=== PATIENT | male | born 1965 | race Caucasian/White ===

== ENCOUNTER 2018-10-10 12:37 | Emergency (ER) | payer BC ==
[~2018-10-10] VITALS: Wt 91.5 kg
[2018-10-10 12:43] VITALS: BP 127/72; PULSE 83; RESP 19
--- NOTE | 2018-10-10 15:43 | ERD ---
ER Documentation Chief Complaint Chief Complaint bib self, referred by pmd for bilateral leg swelling HPI The patient is a 52-year-old male, presenting to the ER because of bilateral lower extremity edema for more than 4 months, went to the clinic today who referred him to the ER. He denies fever, chills, neck pain, chest pain, dyspnea, abdominal pain, vomiting, dysuria, diarrhea. He denies hematemesis/hematochezia. He smokes, used to drink until recently, denies any illicit drug Past Medical History: Cirrhosis, hepatic steatosis, kidney stone, varicosis vein Past surgical history: Back surgery ROS All systems reviewed and are negative except as per history of present illness. Medications Home Meds Active Scripts Tramadol HCl (Tramadol HCl) 50 Mg Tablet, 50 MG PO Q6 PRN for PAIN, #10 TAB Prov:SERVANDO CAMARA MD 10/10/18 Reported Medications Methadone Hcl* (Methadone*) 10 Mg Tab, 10 MG PO NEEDED, TAB 10/10/18 Furosemide* (Furosemide*) 40 Mg Tablet, 40 MG PO DAILY, TAB 10/10/18 Propranolol Hcl* (Propranolol Hcl*) 10 Mg Tablet, 10 MG PO BID, TAB 10/10/18 Allergies Allergies: Coded Allergies: No Known Allergy (Unverified , 10/10/18) Physical Exam Vitals Vital Signs Date Temp Pulse Resp B/P (MAP) Pulse Ox O2 O2 Flow FiO2 Time Delivery Rate 10/10/18 98.3 83 19 127/72 100 12:43 (90) Physical Exam Const: No acute distress. Head: Atraumatic. Eyes: Normal Conjunctiva. ENT: Normal External Ears, Nose and Mouth. Neck: Full range of motion. No meningismus. Resp: Clear to auscultation bilaterally. Cardio: Regular rate and rhythm. Abd: Soft, non distended, normal bowel sounds, non tender. Skin: No petechiae or rashes. Back: No midline or flank tenderness. Ext: Bilateral leg edema, vague calf discomfort,varicosis vein Neur: Awake and alert. No focal deficit Psych: Normal Mood and Affect. Results 24 hrs Laboratory Tests Test 10/10/18 16:45 Bedside Urine pH (LAB) 7.0 Bedside Urine Protein (LAB) Negative Bedside Urine Glucose (UA) Negative Bedside Urine Ketones (LAB) Negative Bedside Urine Blood Trace-intact Bedside Urine Nitrite (LAB) Negative Bedside Urine Leukocyte Esterase (L Negative Current Medications Medications Dose Sig/Barbara Start Time Status Last (Trade) Ordered Route PRN Stop Time Admin Dose Reason Admin Tramadol 50 mg ONCE ONCE 10/10/18 HCl PO 17:30 (Ultram) 10/10/18 17:31 Procedures/MDM [place] [id number] [place] [id number] Radiology Main Line: [phone] DIAGNOSTIC IMAGING REPORT Patient: NICKI WILKERSON : 1965 Age: 52 Sex: M MR #: [id number] DOS: 10/10/18 1556 Ordering MD: SERVANDO CAMARA MD Location: E/R Room/Bed: PROCEDURE: US Lower extremity Venous. CLINICAL INDICATION: Bilateral lower extremity edema TECHNIQUE: Multiple sonographic images of the bilateral lower extremity deep venous system was obtained utilizing grayscale, color-flow, compressive sonography and doppler imaging with augmentation. The images were reviewed on a PACS workstation. COMPARISON: None. FINDINGS: There is normal compressibility and flow within the bilateral common femoral, femoral , posterior tibial and popliteal veins. RPTAT: AA IMPRESSION: No sonographic evidence for deep venous thrombosis. .Dennis Oliver MD, MD Date Time Electronically viewed and signed by .Dennis Oliver MD, MD on 10/10/2018 16:23 .S/ CC: SERVANDO CAMARA MD [id number] MEDICAL MAKING DECISION: The patient is a 52-year-old male, presenting with peripheral edema, most likely due to cirrhosis, is stable for outpatient follow- up. He needs to be treated with Aldactone and Lasix. He was treated with Ultram for pain with good response The differential diagnoses considered include but are not limited to hepatic insufficiency, renal insufficiency, DVT, lymphedema, cellulitis Departure Diagnosis: Primary Impression: Peripheral edema Condition: Good Comments He was discharged with 10 tablets of Ultram I discussed the findings with the patient. I advised the patient to follow-up with the primary physician in about 2-3 days for reevaluation and adjustment of medication, sooner if needed and return if any concern. Disclaimer: Inadvertent spelling and grammatical errors are likely due to EHR/dictation software use and do not reflect on the overall quality of patient care. Also, please note that the electronic time recorded on this note does not necessarily reflect the actual time of the patient encounter. SERVANDO CAMARA MD Oct 10, 2018 15:43
[2018-10-10] MEDS ORDERED: PROP10TA6 PO (17:11)
[2018-10-10] MEDS ORDERED: METH10TA2 PO (17:12)
[2018-10-10] MEDS ORDERED: FURO40TA4 PO (17:12)
[2018-10-10] MEDS ORDERED: TRAM50TA2 PO (17:15)
[2018-10-10] MEDS ORDERED: traMADol 50 MG TAB PO ONE (17:30)
== END 2018-10-10 18:00 | disposition home or self-care (01) ==
LOC: E/R 12:37
DX: R60.9 Edema, unspecified (principal)
CPT/HCPCS: 81003; 93970; 99284; Z7610